=== PATIENT | male | born 1955 | race Caucasian/White ===

== ENCOUNTER → 2020-10-17 | Day surgery (SDC) | payer BC, MEDICARE ==
[2020-10-16 10:59] VITALS: BMI 32.2
[~2020-10-17] MED LIST: LACTATED RINGERS 1,000 ML IV SCH; LIDOCAINE 1% INJ 10MG/ML (20 ML MDV) ONE; PROPOFOL 10 MG/ML 20 ML VIAL IV ONE
[2020-10-17 07:41] VITALS: RESP 16; TEMP 97.2
[2020-10-17 07:58] LABS: Glucose,Whole Blood 72 mg/dL (75-99)
--- NOTE | 2020-10-17 08:26 | P.PCN ---
Date of Procedure: 10/17/20 Procedure(s) Performed: BRIEF HISTORY: Patient is a 65-year-old pleasant white male scheduled for an elective colonoscopy as a part of evaluation of prior history of colon polyps. Last colonoscopy was 5 years ago. He also history of Crohn's disease involved the small bowel in about 2 months ago was admitted to [facility] with exacerbation and treated with steroids. PROCEDURE PERFORMED: Colonoscopy with biopsy and snare polypectomy. PREOPERATIVE DIAGNOSIS: History of colon polyps and history of Crohn's disease. IV sedation per Anesthesia. PROCEDURE: After informed consent was obtained, the patient, was brought into the endoscopy unit. IV sedation was administered by Anesthesia under continuous monitoring. Digital rectal examination was normal. Initially the Olympus CF-160 flexible video colonoscope was then inserted in the rectum, gradually advanced into the cecum without any difficulty. Careful examination was performed as the scope was gradually being withdrawn. Ileocecal valve and the appendiceal orifice were visualized and appeared normal. Prep was excellent. Mucosa of the cecum, ascending colon, appeared normal. In the ascending colon there was a 5 mm polyp removed by snare polypectomy. In the proximal transverse colon there was another 5 mm polyp that was removed by snare polypectomy. In the sigmoid colon there was a 7 mm polyp removed by snare polypectomy. Rest of the transverse colon, descending colon, sigmoid colon, and rectum appeared normal. There were left sided diverticulosis seen. Retroflexion was performed in the rectum and grade 2 internal hemorrhoids were seen. The patient tolerated the procedure well. IMPRESSION: Normal-appearing terminal ileum 5 mm ascending colon polyp status post removal by cold biopsy 5 mm transverse colon polyp status post polypectomy 7 mm;sigmoid polyp status post polypectomy Grade 2 internal hemorrhoids Scattered left sided diverticulosis RECOMMENDATIONS: Findings of this examination were discussed with the patient as well as his family. He was advised to follow with the biopsy results. Based the biopsy result he can have a repeat colonoscopy in 5 years.
[2020-10-17 08:42] VITALS: BP 115/81; PULSE 72
--- NOTE | 2020-10-21 10:40 | CDI ---
Date: 10.21.2020 [employer] Head Name: Shonda Howard Phone: If any questions, call Sophia Jha Film Library Clerk at [phone] Patient Name: Gregorio Mcneilid Admit Date 10.17.20 Discharge Date: 10.17.20 ATTENTION: The [facility] Coding Staff appreciate your assistance in clarifying documentation. Please respond to the clarification below the line at the bottom and electronically sign. The [facility] Coding staff will review the response and follow-up if needed. Please note: Queries are made part of the Legal Health Record. If you have any questions, please contact the Film Library Clerk. Dear Dr. Fragoso In order to code to the greatest specificity and for the greatest reimbursement I need the following information: In your procedure note you documented in the ascending colon there was a 5 mm polyp removed by snare polypectomy and under the impression you have documented 5 mm ascending colon polyp status post removal by cold biopsy. Please clarify by which technique the polyp was removed in the ascending colon. Thank you for your kind consideration. MTDD
== END ==
LOC: ORWHC2ENDO 07:12
PROVIDERS: ATTEND Internal Medicine Gastroenterology
DX: Z12.11 Encounter for screening for malignant neoplasm of colon (principal); K63.5 Polyp of colon; K63.89 Other specified diseases of intestine; K57.30 Diverticulosis of large intestine without perforation or abscess without bleeding; K64.1 Second degree hemorrhoids; K50.00 Crohn's disease of small intestine without complications; E11.9 Type 2 diabetes mellitus without complications; I10 Essential (primary) hypertension; G47.33 Obstructive sleep apnea (adult) (pediatric); F17.210 Nicotine dependence, cigarettes, uncomplicated; J30.1 Allergic rhinitis due to pollen; Z86.010 Personal history of colon polyps; Z98.890 Other specified postprocedural states; Z79.82 Long term (current) use of aspirin; Z79.899 Other long term (current) drug therapy; Z79.84 Long term (current) use of oral hypoglycemic drugs; Z97.2 Presence of dental prosthetic device (complete) (partial)
CPT/HCPCS: 45385; 45380; 88305; J2001; J2704

== ENCOUNTER → 2020-12-18 | Day surgery (SDC) | payer MEDICARE ==
[~2020-12-18] MED LIST changes: +GLUCAGON 1 MG/ML VIAL IM STA; -LACTATED RINGERS 1,000 ML IV SCH; -LIDOCAINE 1% INJ 10MG/ML (20 ML MDV) ONE; -PROPOFOL 10 MG/ML 20 ML VIAL IV ONE
[2020-12-18 10:50] LABS: Glucose,Whole Blood 160 mg/dL (75-99)
[2020-12-18 10:59] VITALS: BP 139/78; PULSE 74; RESP 16; TEMP 97.8
--- NOTE | 2020-12-18 19:05 | MR ---
EXAMINATION TYPE: MR Enterography DATE OF EXAM: 12/18/2020 COMPARISON: NONE HISTORY: 65-year-old male K50.90, Crohn's disease. The technologist reports patient had a flareup 10 years ago and another recently. Technique: Multiplanar, multisequence images of the abdomen and pelvis were obtained before and after administration of 9 mL intravenous Gadavist gadolinium contrast. Patient was also given 1350 mL vol ume and oral contrast over 1 hour. FINDINGS: Mild to moderate degenerative disc disease. Tiny matrix hemangioma within the L2 vertebral body. Tiny subcentimeter T2 hyperintensities within the cortex of both kidneys too small for accurate filemon cterization, likely tiny cortical cysts. One such lesion is T1 bright measuring 8 mm in the left mid kidney suggesting a small proteinaceous or hemorrhagic cyst. Their is a 5.4 cm diverticulum of the second portion of the duodenum. Bile duct is normal caliber. A couple small hepatic cysts measuring up to 9 mm are noted. Visualized pancreas, gallbladder, adrenal glands, and spleen show no gross abnormality. No dilated small bowel. No free fluid is identified. No perinephric edema likely senescent change. Mild scattered colonic diverticula are noted. Normal appendix. There is nonspecific mild increased enhancement of a few distal ileal loops including the terminal il eum but enhancement is not appear as great as some of the left-sided jejunal loops. There is no abnor mal wall thickening or stricture in this region. However, there are a couple segments of left mid abdominal jejunum measuring up to 8 cm long each gaby t show annular narrowing, mucosal hyperemia, and wall thickening, refer to coronal tpi 3 image 105 an d 132 for example There also appears to be hyperemia with annular narrowing and a 5 cm long segment at the rectosigmoid junction, referred to tpi 3 coronal image 312. No lymphadenopathy identified. IMPRESSION: 1. Mild active Crohn's enteritis involving a couple left mid abdominal jejunal loops for a span of 8 cm each. 2. Additional 5 cm long segment of colitis at the rectosigmoid junction. 3. All 3 of these sites show annular narrowing and some degree of underlying chronic stricture is dif ficult to exclude.
== END ==
LOC: RADMRIMAIN 10:05
PROVIDERS: ATTEND Internal Medicine Gastroenterology
DX: K50.00 Crohn's disease of small intestine without complications (principal); K52.9 Noninfective gastroenteritis and colitis, unspecified
CPT/HCPCS: 96372; 72197; 74183; J1610; A9585

== ENCOUNTER 2022-09-15 21:56 | Emergency (ER) | payer MEDICARE ==
[2022-09-15] MEDS ORDERED: SODIUM CHLORIDE 0.9% 500 ML 500 ML IV STA (22:04)
[2022-09-15] MEDS ORDERED: SODIUM CHLORIDE 0.9% 1,000 ML IV STA ×3 (22:04→23:19)
--- NOTE | 2022-09-15 22:05 | ED ---
Syncope HPI - General Chief Complaint: Syncope Stated Complaint: Syncope Time Seen by Provider: 09/15/22 22:04 Source: patient, EMS, RN notes reviewed, old records reviewed Mode of arrival: EMS Limitations: no limitations - History of Present Illness Initial Comments: This is a 66-year-old man found down, comes in by EMS for evaluation of a syncopal event. Patient pass out the bar does admit to drinking tonight. No headache no nausea no vomiting no chest pain or shortness of breath MD Complaint: loss of consciousness, almost passed out, collapsed -: minutes(s) Prodromal Symptoms: none Description of Event: post-event confusion -: second(s) Witnessed: yes - by bystander Injuries Sustained Associated with Event: None Current Symptoms: back to baseline, lightheaded History: previous syncopal episode Context: at rest Treatments Prior to Arrival: none - Related Data Home Medications Medication Instructions Recorded Confirmed Aspirin [Adult Low Dose Aspirin EC] 81 mg PO HS 10/16/20 12/18/20 Fenofibrate Nanocrystallized 145 mg PO HS 10/16/20 12/18/20 [Fenofibrate] metFORMIN HCL [Glucophage] 1,000 mg PO HS 10/16/20 12/18/20 Allergies Allergy/AdvReac Type Severity Reaction Status Date / Time No Known Allergies Allergy Verified 12/18/20 10:51 Review of Systems ROS Statement: Those systems with pertinent positive or pertinent negative responses have been documented in the HPI. ROS Other: All systems not noted in ROS Statement are negative. Past Medical History Past Medical History: Diabetes Mellitus, Hypertension, Sleep Apnea/CPAP/BIPAP Additional Past Medical History / Comment(s): crohns. hayfever. hx htn no medication at this time History of Any Multi-Drug Resistant Organisms: MRSA Date of last positivie culture/infection: unkn. MDRO Source:: leg Past Surgical History: Joint Replacement Additional Past Surgical History / Comment(s): lt knee replacement Past Anesthesia/Blood Transfusion Reactions: No Reported Reaction Past Psychological History: No Psychological Hx Reported Smoking Status: Current every day smoker General Exam Limitations: no limitations General appearance: alert, in no apparent distress Head exam: Present: atraumatic, normocephalic, normal inspection Eye exam: Present: normal appearance, PERRL, EOMI. Absent: scleral icterus, conjunctival injection, periorbital swelling ENT exam: Present: normal exam, mucous membranes moist Neck exam: Present: normal inspection. Absent: tenderness, meningismus, lymphadenopathy Respiratory exam: Present: normal lung sounds bilaterally. Absent: respiratory distress, wheezes, rales, rhonchi, stridor Cardiovascular Exam: Present: regular rate, normal rhythm, normal heart sounds. Absent: systolic murmur, diastolic murmur, rubs, gallop, clicks GI/Abdominal exam: Present: soft, normal bowel sounds. Absent: distended, tenderness, guarding, rebound, rigid Extremities exam: Present: normal inspection, full ROM, normal capillary refill. Absent: tenderness, pedal edema, joint swelling, calf tenderness Back exam: Present: normal inspection Neurological exam: Present: alert, oriented X3, CN II-XII intact Psychiatric exam: Present: normal affect, normal mood Skin exam: Present: warm, dry, intact, normal color. Absent: rash Course Vital Signs 09/15/22 21:58 Temperature 97.8 F Pulse Rate 76 Respiratory 15 Rate Blood Pressure 131/91 O2 Sat by Pulse 97 Oximetry - Reevaluation(s) Reevaluation #1: 09/15/22 23:21 Medical record is reviewed Reevaluation #2: 09/15/22 23:21 No recurrent syncope here in the ER Reevaluation #3: 09/15/22 23:21 Patient informed of results and questions answered Medical Decision Making - Medical Decision Making 58 male with syncopal event dehydration related, given adequate hydration here in the ER normal vitals no recurrent syncope no complaints can be discharged home - Lab Data Result diagrams: 09/15/22 22:22 09/15/22 22:22 Lab Results 09/15/22 09/15/22 09/15/22 Range/Units 22:22 22:22 22:22 WBC 7.4 (3.8-10.6) k/uL RBC 5.28 (4.30-5.90) m/uL Hgb 16.3 (13.0-17.5) gm/dL Hct 48.2 (39.0-53.0) % MCV 91.3 (80.0-100.0) fL MCH 30.9 (25.0-35.0) pg MCHC 33.8 (31.0-37.0) g/dL RDW 13.7 (11.5-15.5) % Plt Count 177 (150-450) k/uL MPV 8.3 Neutrophils % 54 % Lymphocytes % 33 % Monocytes % 7 % Eosinophils % 2 % Basophils % 1 % Neutrophils # 4.0 (1.3-7.7) k/uL Lymphocytes # 2.4 (1.0-4.8) k/uL Monocytes # 0.5 (0-1.0) k/uL Eosinophils # 0.2 (0-0.7) k/uL Basophils # 0.1 (0-0.2) k/uL PT 10.7 (9.0-12.0) sec INR 1.0 (<1.2) Sodium 137 (137-145) mmol/L Potassium 3.7 (3.5-5.1) mmol/L Chloride 105 (98-107) mmol/L Carbon Dioxide 20 L (22-30) mmol/L Anion Gap 12 mmol/L BUN 12 (9-20) mg/dL Creatinine 1.12 (0.66-1.25) mg/dL Est GFR (CKD-EPI)AfAm 78 (>60 ml/min/1.73 sqM) Est GFR (CKD-EPI)NonAf 67 (>60 ml/min/1.73 sqM) Glucose 153 H (74-99) mg/dL Calcium 9.9 (8.4-10.2) mg/dL Phosphorus 3.0 (2.5-4.5) mg/dL Magnesium 2.0 (1.6-2.3) mg/dL Total Bilirubin 0.4 (0.2-1.3) mg/dL AST 18 (17-59) U/L ALT 15 (4-49) U/L Alkaline Phosphatase 64 (38-126) U/L Total Protein 6.9 (6.3-8.2) g/dL Albumin 4.2 (3.5-5.0) g/dL Lipase 119 (23-300) U/L Serum Alcohol 193 mg/dL Disposition Clinical Impression: Vasovagal syncope, Dehydration Disposition: HOME SELF-CARE Condition: Fair Instructions (If sedation given, give patient instructions): Syncope (ED) Is patient prescribed a controlled substance at d/c from ED?: No Referrals: Alyssa Loya DO [Primary Care Provider] - 1-2 days Time of Disposition: 23:45
[2022-09-15 22:33] LABS: Basophils # (A) 0.1 k/uL (0-0.2); Basophils % (A) 1 %; Eosinophils # (A) 0.2 k/uL (0-0.7); Eosinophils % (A) 2 %; HCT 48.2 % (39.0-53.0); HGB 16.3 gm/dL (13.0-17.5); Lymphocytes # (A) 2.4 k/uL (1.0-4.8); Lymphocytes % (A) 33 %; MCH 30.9 pg (25.0-35.0); MCHC 33.8 g/dL (31.0-37.0); MCV 91.3 fL (80.0-100.0); Mean Platelet Volume 8.3; Monocytes # (A) 0.5 k/uL (0-1.0); Monocytes % (A) 7 %; Neutrophils % (A) 54 %; Platelet Count 177 k/uL (150-450); RBC 5.28 m/uL (4.30-5.90); RDW 13.7 % (11.5-15.5); WBC 7.4 k/uL (3.8-10.6)
[2022-09-15 22:44] LABS: Albumin 4.2 g/dL (3.5-5.0); Calcium 9.9 mg/dL (8.4-10.2); Potassium 3.7 mmol/L (3.5-5.1); Total Bilirubin 0.4 mg/dL (0.2-1.3); Total Protein 6.9 g/dL (6.3-8.2)
[2022-09-15 22:48] LABS: Prothrombin Time 10.7 sec (9.0-12.0)
[2022-09-15 23:46] VITALS: BP 139/75; PULSE 81; RESP 16; TEMP 98.1
== END 2022-09-15 23:47 | disposition home or self-care (01) ==
LOC: EC 21:56
DX: R55 Syncope and collapse (principal); E86.0 Dehydration; E11.9 Type 2 diabetes mellitus without complications; I10 Essential (primary) hypertension; F17.200 Nicotine dependence, unspecified, uncomplicated; Z79.82 Long term (current) use of aspirin; Z79.84 Long term (current) use of oral hypoglycemic drugs; Z79.899 Other long term (current) drug therapy
CPT/HCPCS: 36415; 80053; 83690; 83735; 84100; 85025; 85610; 99284; 96360; G0480; 80320

== ENCOUNTER → 2023-04-01 | Outpatient (CLI) | payer MEDICARE ==
--- NOTE | 2023-04-01 17:42 | CA ---
Transthoracic Echo Report Name: Luther Retana Age: 67 Gender: M : 1955 Exam Date: 04/01/2023 12:30 Exam Location: [facility] Ht (in): 67 Wt (lb): 210 Ordering Physician: Alyssa Loya DO Attending/Referring Phys: Guest Services Associate Heather Crabtree RDCS Procedure CPT: Indications: I10 hypertention Cardiac Hx: Technical Quality: Technically difficult study Contrast 1: Lumason Total Dose (mL): 4 Contrast 2: Total Dose (mL): MEASUREMENTS (Male / Female) Normal Values 2D ECHO LV Diastolic Diameter PLAX 5.1 cm 4.2 - 5.9 / 3.9 - 5.3 cm LV Systolic Diameter PLAX 4.0 cm IVS Diastolic Thickness 1.4 cm 0.6 - 1.0 / 0.6 - 0.9 cm LVPW Diastolic Thickness 1.3 cm 0.6 - 1.0 / 0.6 - 0.9 cm LV Relative Wall Thickness 0.5 RV Internal Dim ED PLAX 3.0 cm LV Diastolic Volume MOD BP 100.3 cm??? 67 - 155 / 56 - 104 cm??? LV Systolic Volume MOD BP 72.0 cm??? 22 - 58 / 19 - 49 cm??? LV Ejection Fraction MOD BP 28.1 % >= 55 % LV Cardiac Index MOD BP 824.8 cm???/min???m??? LV Diastolic Volume MOD 4C 99.0 cm??? LV Systolic Volume MOD 4C 61.4 cm??? LV Ejection Fraction MOD 4C 38.0 % LV Cardiac Index MOD 4C 1100.5 cm???/min???m??? LV Diastolic Length 4C 8.4 cm LV Systolic Length 4C 8.0 cm LV Diastolic Volume MOD 2C 99.6 cm??? LV Systolic Volume MOD 2C 77.8 cm??? LV Ejection Fraction MOD 2C 21.9 % LV Cardiac Index MOD 2C 637.8 cm???/min???m??? LV Diastolic Length 2C 8.8 cm LV Systolic Length 2C 8.9 cm LA Volume 30.2 cm??? 18 - 58 / 22 - 52 cm??? M-MODE Aortic Root Diameter MM 3.6 cm LA Systolic Diameter MM 4.1 cm LA Ao Ratio MM 1.1 AV Cusp Separation MM 1.9 cm DOPPLER AV Peak Velocity 111.0 cm/s AV Peak Gradient 4.9 mmHg AV Mean Velocity 80.7 cm/s AV Mean Gradient 2.9 mmHg AV Velocity Time Integral 17.2 cm LVOT Peak Velocity 64.4 cm/s LVOT Peak Gradient 1.7 mmHg LVOT Velocity Time Integral 10.3 cm MV Area PHT 3.1 cm??? Mitral E Point Velocity 52.0 cm/s Mitral A Point Velocity 88.5 cm/s Mitral E to A Ratio 0.6 MV Deceleration Time 245.7 ms MV E' Velocity 3.5 cm/s Mitral E to MV E' Ratio 15.0 TR Peak Velocity 178.4 cm/s TR Peak Gradient 12.7 mmHg Right Ventricular Systolic Press 17.7 mmHg FINDINGS Left Ventricle Moderately increased left ventricular systolic volume. Severely decreased left ventricular ejection fraction. Moderately increased left ventricular wall thickness. Left ventricular ejection fraction is estimated at 30-35 %. Right Ventricle Normal right ventricular size and function. Right ventricular systolic pressure within normal limits. Right Atrium Normal right atrial size. Left Atrium Normal left atrial size. Mitral Valve Structurally normal mitral valve. No mitral stenosis. No evidence for mitral valve prolapse. Mild mitral regurgitation. Aortic Valve No aortic valve stenosis or regurgitation. Tricuspid Valve Structurally normal tricuspid valve. Mild tricuspid regurgitation. Pulmonic Valve Trace pulmonic regurgitation. Pericardium No pericardial effusion. Aorta Normal size aortic root and proximal ascending aorta. CONCLUSIONS Moderate to severely decreased LV systolic dysfunction with an ejection fraction of 30-35% Technically suboptimal study secondary to poor echo windows Previewed by: Dr. Jed Fragoso MD (Electronically Signed) Final Date: 01 April 2023 17:41
== END | disposition home or self-care (01) ==
LOC: RADECHMAIN 12:20
PROVIDERS: ATTEND Family Medicine
DX: I10 Essential (primary) hypertension (principal)
CPT/HCPCS: C8929; Q9950; 93306

== ENCOUNTER 2024-02-28 05:47 | Day surgery (SDC) | payer MEDICARE ==
[2024-02-28] MEDS ORDERED: NITROGLYCERIN SL TABS 0.4 MG TAB SUBLINGUAL PRN (05:48)
[2024-02-28] MEDS ORDERED: ALPRAZolam 0.25 MG TAB PO PRN (05:48)
[2024-02-28] MEDS ORDERED: ALPRAZolam 0.5 MG TAB PO PRN (05:48)
[2024-02-28] MEDS ORDERED: ASPIRIN 325 MG TAB PO STA (05:48)
[2024-02-28] MEDS: SODIUM CHLORIDE 0.9% 1,000 ML in EMPTY BAG 1 BAG IV SCH (06:15)
[2024-02-28 06:21] LABS: Glucose,Whole Blood 147 mg/dL (70-110)
[2024-02-28 06:30] VITALS: RESP 18; TEMP 98
[2024-02-28 06:55] LABS: Basophils # (A) 0.1 k/uL (0-0.2); Basophils % (A) 1 %; Eosinophils # (A) 0.2 k/uL (0-0.7); Eosinophils % (A) 3 %; HCT 53.6 % (39.0-53.0); HGB 17.2 gm/dL (13.0-17.5); Lymphocytes # (A) 2.6 k/uL (1.0-4.8); Lymphocytes % (A) 32 %; MCV 93.8 fL (80.0-100.0); Mean Platelet Volume 8.2; Monocytes # (A) 0.6 k/uL (0-1.0); Monocytes % (A) 8 %; Neutrophils # (A) 4.4 k/uL (1.3-7.7); Neutrophils % (A) 55 %; Platelet Count 212 k/uL (150-450); RBC 5.71 m/uL (4.30-5.90); RDW 13.6 % (11.5-15.5); WBC 8.1 k/uL (3.8-10.6)
[2024-02-28 07:04] LABS: African American GFR (CKD) 59 (>60 ml/min/1.73 sqM); Anion Gap 3 mmol/L; Blood Urea Nitrogen 18 mg/dL (9-20); Calcium 10.2 mg/dL (8.4-10.2); Carbon Dioxide 28 mmol/L (22-30); Chloride 105 mmol/L (98-107); Glucose 150 mg/dL (74-99); Non-African American GFR(CKD) 51 (>60 ml/min/1.73 sqM); Sodium 136 mmol/L (137-145)
[2024-02-28] MEDS ORDERED: VERAPAMIL 2.5 MG/ML 2 ML AMP ONE (07:12)
[2024-02-28] MEDS ORDERED: LIDOCAINE 1% INJ 10MG/ML (20 ML MDV) ONE (07:13)
[2024-02-28] MEDS ORDERED: HEPARIN SODIUM 1,000 UN/ML (10ML VL) ONE (07:23)
[2024-02-28] MEDS ORDERED: fentaNYL (PF) 50 MCG/ML 2 ML AMP ONE (07:23)
[2024-02-28] MEDS: MIDAZOLAM 2 MG/2 ML VIAL IVP ONE (07:30)
[2024-02-28] MEDS: fentaNYL (PF) 50 MCG/ML 2 ML AMP IVP ONE (07:30)
[2024-02-28] MEDS: LIDOCAINE 1% INJ 10MG/ML (20 ML MDV) SQ ONE (07:32)
[2024-02-28] MEDS: HEPARIN SODIUM 1,000 UN/ML (10ML VL) IVP ONE (07:38)
[2024-02-28] MEDS: VERAPAMIL SYRINGE (5 MG/10 ML) INTRAARTER ONE (07:39)
[2024-02-28] MEDS: IOPAMIDOL-370 100ML BTL INJ ONE (07:57)
[2024-02-28] MEDS ORDERED: RX INFO: IV CONTRAST WAS GIVEN 1 EACH MISC MISCELLANE PRN (08:02)
[2024-02-28] MEDS ORDERED: SODIUM CHLORIDE 0.9% 1,000 ML IV SCH (08:15)
--- NOTE | 2024-02-28 08:18 | CC ---
CARDIAC CATHETERIZATION REPORT PROCEDURE NOTE: After obtaining informed consent, left heart catheterization and coronary angiogram were performed via the right radial artery using standard Jacob catheters. The patient tolerated the procedure well without any obvious immediate complications. . RIKY / SARAN: [id number] /
--- NOTE | 2024-02-28 08:42 | CC ---
CARDIAC CATHETERIZATION REPORT INDICATION: Ischemic cardiomyopathy. PROCEDURE NOTE: After obtaining informed consent, left heart catheterization and coronary angiogram were performed via right radial artery using standard Jacob catheters. The patient tolerated the procedure well without any obvious immediate complications. The patient received moderate conscious sedation. Total sedation time was 16 minutes. Right radial artery access was obtained using Seldinger technique, 6-Bhutanese sheath was placed. Catheters and wires were floated into the ascending aorta under fluoroscopic guidance. The patient received verapamil and heparin per protocol. A TR band was used for hemostasis. FINDINGS: 1. HEMODYNAMICS: Left ventricular end-diastolic pressure is 10 mm. There is no significant gradient across the aortic valve. 2. Left ventriculogram: Left ventriculogram is not performed. 3. ANGIOGRAPHIC DATA: a.Right coronary artery: Right coronary artery is a large dominant vessel that shows irregular and ectatic and aneurysmal changes in its midportion. b.Left main coronary artery appears calcified, but is free of significant stenosis. c.Circumflex coronary artery shows mild nonobstructive disease. d.LAD shows a moderate area of nonobstructive plaque in its midportion, moderate 50% to 70% stenosis involving mid LAD, irregular ectatic and aneurysmal changes involving large dominant right coronary artery and mild nonobstructive disease involving circumflex coronary artery. PLAN: I reviewed angiographic data with Dr. Holman, the on-call customer insight analyst and decided to manage him with optimal medical therapy with aspirin, Entresto, Toprol, and lipid lowering agents. The patient will also work on risk factor modification. MMODL / IJN: [id number] /
[2024-02-28 12:35] VITALS: BP 118/72; PULSE 67
== END 2024-02-28 12:50 | disposition home or self-care (01) ==
LOC: CATHCVL 05:47
PROVIDERS: ATTEND Internal Medicine Cardiovascular Disease
DX: I25.5 Ischemic cardiomyopathy (principal); Z79.82 Long term (current) use of aspirin; Z79.899 Other long term (current) drug therapy
CPT/HCPCS: 93458; 80048; 85025; J2250; J2001; J3010; J1644; Q9967